=== PATIENT | female | born 1945 | race Two or more races ===

== ENCOUNTER 2019-01-09 05:02 | Day surgery (SDC) | payer OTHER ==
[~2019-01-09 05:02] MED LIST: TOVIAZ8 MG
[2019-01-09] MEDS ORDERED: VOLTAREN-XR100 MG PO (10:23)
== END 2019-01-09 11:10 | disposition home or self-care (01) ==
LOC: CIR.AMB 05:02 → SURG 07:00 → CIR.AMB 07:00 → EDSTATUS 07:00 → CIR.AMB 11:10
DX: M20.41 Other hammer toe(s) (acquired), right foot (principal)